=== PATIENT | female | born 1955 | race Two or more races ===

== ENCOUNTER 2019-03-23 14:20 | Emergency (ER) | payer OTHER ==
[~2019-03-23] VITALS: Ht 162.6 cm; Wt 71.7 kg
--- OUTSIDE RECORDS SUMMARY | 2019-03-23 14:22 | XMS REPORT | Summary of Care ---
Author Author [facility] Organization [facility] Address Unknown Phone Unavailable Encounter HQ Rogelio(FIN) [id number] Date(s): 03/19/19 - 03/19/19 [facility] [address] [place] [address]- Encounter Diagnosis Encounter for screening mammogram for malignant neoplasm of breast (Final) - Discharge Disposition: Home or Self Care Attending Physician: Vianey Bernard DO Referring Physician: Vianey Bernard DO Vital Signs No data available for this section Problem List Condition Effective Dates Status Health Status Informant Acute pharyngitis1 01/12/09 Resolved Allergic rhinitis2 Active Benign essential 04/04/10 Active hypertension3 Diabetic - Active cooperative patient(Confirmed) Dyslipidemia4 Active Hypertension(Confirm Active ed) Influenza with 12/09/07 Resolved respiratory manifestation other than pneumonia5 Liver enzymes Active abnormal(Confirmed) Liver Active mass(Confirmed) Long-term drug 04/04/10 Active therapy6 Malignant tumor of 03/30/11 Active breast7 Mammography 03/13/11 Active abnormal8 Muscle pain9 01/12/09 Active Otitis media10 12/29/09 Resolved Ugxuaxwhwee19 11/29/09 Resolved Sick sinus 06/05/07 Active oxcdiapg09 Mhlnuysnq09 09/17/09 Resolved Type 2 diabetes Active emduvosz79 Upper respiratory 11/29/09 Resolved dqfzisljy44, 16 1Data migrated from [employer] on 05/15/15. 2Data migrated from [employer] on 03/27/15. 3Data migrated from [employer] on 03/27/15. 4Data migrated from [employer] on 03/27/15. 5Data migrated from [employer] on 05/15/15. 6Data migrated from [employer] on 03/27/15. 7Data migrated from [employer] on 03/27/15. 8Data migrated from [employer] on 03/27/15. 9Data migrated from [employer] on 03/27/15. 10Data migrated from [employer] on 05/15/15. 11Data migrated from [employer] on 05/15/15. 12Data migrated from [employer] on 03/27/15. 13Data migrated from [employer] on 05/15/15. 14Data migrated from [employer] on 03/27/15. 15Data migrated from [employer] on 05/15/15. 16Data migrated from [employer] on 05/15/15. Allergies, Adverse Reactions, Alerts Substance Reaction Severity Status amoxicillin-clavulanate1 Active NKDA Active 1Data migrated from [employer] on 02/23/15. Originally documented as AUGMENTIN. Gastrointestinal problems, e.g., nausea, vomiting, diarrheastomach upset (NOT TRUE ALLERGY) Medications No data available for this section Results No data available for this section Immunizations No data available for this section Procedures No data available for this section Social History Social History Type Response Assessment and Plan No data available for this section
--- OUTSIDE RECORDS SUMMARY | 2019-03-23 14:22 | XMS REPORT | Summary of Care ---
Author Author [facility] Organization [facility] Address Unknown Phone Unavailable Encounter VAMSI Mercado(FIN) [id number] Date(s): 03/19/18 - 03/19/18 [facility] [address] [place] [address]- [phone] Discharge Disposition: Home or Self Care Attending [...] pain9 01/12/09 Active Otitis media10 12/29/09 Resolved Mbggbylcqfn68 11/29/09 Resolved Sick sinus 06/05/07 Active vjpxthoc53 Tgmbqfcyw31 09/17/09 Resolved Type 2 diabetes Active dckqzkic49 Upper respiratory 11/29/09 Resolved pvsbizltz76, 16 1Data migrated from [employer] on [...]
--- OUTSIDE RECORDS SUMMARY | 2019-03-23 14:22 | XMS REPORT | Summary of Care ---
Author Organization Unknown Address Unknown Phone Unavailable Encounter HQ Encntr_alias(FIN) [id number] Date(s): 02/08/15 - 02/08/15 [facility] [address] [place] [address]- Discharge Disposition: Home Physician Attending: Vianey Bernard DO Physician_Referring: Vianey Bernard DO Vital Signs No data available for this section Problem List Condition Effective Dates Status Health Status Informant Diabetic - Active cooperative patient(Confirmed) Hypertension(Confirm Active ed) Liver enzymes Active abnormal(Confirmed) Liver Active mass(Confirmed) Allergies, Adverse Reactions, Alerts Substance Reaction Severity Status NKDA Active Medications No data available for this section Results No data available for this section Immunizations No data available for this section Procedures No data available for this section Social History Social History Type Response Assessment and Plan No data available for this section
--- OUTSIDE RECORDS SUMMARY | 2019-03-23 14:22 | XMS REPORT | CCD ---
Author Author Auto Generated Organization [facility] Address Unknown Phone Unavailable Care Team Providers Care Ux Visual Designer Name Role Phone Vianey Bernard RP Allergies, Adverse Reactions, Alerts Substance Reaction Status NKDA Active
--- OUTSIDE RECORDS SUMMARY | 2019-03-23 14:22 | XMS REPORT | Summary of Care ---
Author Author [facility] Organization [facility] Address Unknown Phone Unavailable Encounter HQ Rogelio(FIN) [id number] Date(s): 02/04/16 - 02/04/[address] [facility] [address] [place] [address]- Discharge Disposition: Home Attending Physician: Vianey Bernard DO Referring Physician: [...] pain9 01/12/09 Active Otitis media10 12/29/09 Resolved Wvnwuwjllwh28 11/29/09 Resolved Sick sinus 06/05/07 Active ospgonnu81 Wgfntbtxf96 09/17/09 Resolved Type 2 diabetes Active mmatavcl00 Upper respiratory 11/29/09 Resolved drowzxozf57, 16 1Data migrated from [employer] on [...]
--- OUTSIDE RECORDS SUMMARY | 2019-03-23 14:22 | XMS REPORT | CCD ---
Author Author Auto Generated Organization [facility] Address Unknown Phone Unavailable Care Team Providers Care Network Developer Name Role Phone Vianey Bernard RP Allergies, Adverse Reactions, Alerts Substance Reaction Status NKDA Active Problem List Condition Effective Dates Status Diabetic - cooperative patient Active Hypertension Active Liver enzymes abnormal Active Liver mass Active Medications Medication Instructions Start Date End Date Status Byetta 10 mcg/0.04 10 microgram, SUB-Q, BID, 2 ml, 08/14/2012 Ordered mL subcutaneous Substitution Allowed, SOLN solution Vital Signs Most recent to oldest [Reference Range]: 1 Height 162.56 cm (08/14/2012 10:16:00) Weight 70.000 kg (08/14/2012 10:16:00) Results Microbiology Reports PROCEDURE:Culture: AFB w/Smear STATUS: In Progress BODY SITE: Liver COLLECTED DATE/TIME: 08/14/2012 13:29:00 SOURCE: Biopsy FREE TEXT SOURCE: PRELIMINARY REPORTS Preliminary Report Culture In Progress STAIN REPORTS Stain Report No Acid Fast Bacilli Seen On Smear PROCEDURE:Culture: Aspirate/Body Fluid/Tissue STATUS: In Progress BODY SITE: Liver COLLECTED DATE/TIME: 08/14/2012 13:29:00 SOURCE: Biopsy FREE TEXT SOURCE: PRELIMINARY REPORTS Preliminary Report No Growth; Holding Preliminary Report 48 Hour Report - No Growth, Holding STAIN REPORTS Stain Report No Wbc'S Or Organisms Seen PROCEDURE:Culture: Fungal w/Smear STATUS: In Progress BODY SITE: Liver COLLECTED DATE/TIME: 08/14/2012 13:29:00 SOURCE: Lesion FREE TEXT SOURCE: PRELIMINARY REPORTS Preliminary Report Culture In Progress STAIN REPORTS Stain Report No Yeast Or Fungal Elements Seen
--- OUTSIDE RECORDS SUMMARY | 2019-03-23 14:22 | XMS REPORT | CCD ---
Author Author Auto Generated Organization [facility] Address Unknown Phone Unavailable Care Team Providers Care Building Carpenter Helper Name Role Phone Robert Ramirez RP Allergies, Adverse Reactions, Alerts Substance Reaction Status NKDA Active
--- OUTSIDE RECORDS SUMMARY | 2019-03-23 14:22 | XMS REPORT | CCD ---
Author Author Auto Generated Organization [facility] Address Unknown Phone Unavailable Care Team Providers Care Clinical Lab Specialist Name Role Phone Maryjane Stokes CP Unavailable Verónica Degroot CP Kathy Flowers CP [phone] [employer], Login CP Unavailable Lee Barnhart CP Unavailable Robert Ramirez CP Keyla Ahn CP [phone] Natalia Tompkins CP [phone] Vianey Bernard RP Allergies, Adverse Reactions, Alerts Substance Reaction Status NKDA ?? Active
--- OUTSIDE RECORDS SUMMARY | 2019-03-23 14:22 | XMS REPORT | Summary of Care ---
Author Organization Unknown Address Unknown Phone Unavailable Encounter HQ Encntr_alias(FIN) [id number] Date(s): 01/22/15 - 01/22/15 [facility] [address] [place] [address]- Discharge Disposition: Home Physician Attending: Vianey Bernard [...]
--- OUTSIDE RECORDS SUMMARY | 2019-03-23 14:22 | XMS REPORT | CCD ---
Author Author Auto Generated Organization [facility] Address Unknown Phone Unavailable Care Team Providers Care Armature Winder Repairer Name Role Phone Vianey Bernard RP Allergies, Adverse Reactions, Alerts Substance Reaction Status NKDA Active Problem List Condition Effective Dates Status Diabetic - cooperative patient Active Hypertension Active Liver enzymes abnormal Active Liver mass Active
--- OUTSIDE RECORDS SUMMARY | 2019-03-23 14:22 | XMS REPORT | Continuity of Care Document ---
Author Author [facility] Interface Address Unknown Phone Unavailable Problems Problem Status Onset Date Classification Date Reported Comments Source Z12.31=ENCOUNTER FOR SCREENING MAMMOGRAM Active 02/17/2019 [facility] ROUTINE SCREENING LAST MMG W///DX: Active 02/18/2018 [facility] ROUTINE Active 01/31/2017 [facility] M18.9=OSTEOARTHRITIS OF FIRST CARPOMETAC Active 01/17/2016 [facility] ROUTINE MAMMOGRAM Active 01/04/2016 [facility] MAMMO CALL BACK Active 01/27/2015 [facility] SCREENING/ POSTMENOPAUSE Active 01/12/2015 [facility] ABNORMAL MAMMO Active 10/14/2013 [facility] BREAST CA Active 12/02/2012 [facility] STAGE I BREAST CA, ABN IMAGING Active 08/12/2012 [facility] MASS Active 08/12/2012 [facility] 174.9 BREAST CANCER / Active 08/09/2012 [facility] 790.4/ ATTN LIVER Active 07/17/2012 [facility] 174.4 Active 01/31/2012 [facility] BREAST CANCER Active 01/05/2012 [facility] 174.9 Active 04/20/2011 [facility] BREAST CA 174.9/CPT 50160 [id number] Active 04/13/2011 [facility] Malignant tumor of breast<sup>7</sup> Active 03/30/2011 Problem 03/21/2019 Data migrated from [employer] on 03/27/15. [facility] RT BREAST MASS Active 03/16/2011 [facility] Mammography abnormal<sup>8</sup> Active 03/13/2011 Problem 03/21/2019 Data migrated from [employer] on 03/27/15. [facility] MAMMO CALLBACK; SCHED PER RAD-NET REPT; BILATERAL BREAS Active 03/13/2011 [facility] Benign essential hypertension<sup>3</sup> Active 04/04/2010 Problem 03/21/2019 Data migrated from [employer] on 03/27/15. [facility] Long-term drug therapy<sup>6</sup> Active 04/04/2010 Problem 03/21/2019 Data migrated from [employer] on 03/27/15. [facility] Otitis media<sup>10</sup> Resolved 12/29/2009 Problem 03/21/2019 Data migrated from [employer] on 05/15/15. [facility] Pharyngitis<sup>11</sup> Resolved 11/29/2009 Problem 03/21/2019 Data migrated from [employer] on 05/15/15. [facility] Upper respiratory infection<sup>15, 16</sup> Resolved 11/29/2009 Problem 03/21/2019 Data migrated from [employer] on 05/15/15. [facility] Sinusitis<sup>13</sup> Resolved 09/17/2009 Problem 03/21/2019 Data migrated from [employer] on 05/15/15. [facility] Acute pharyngitis<sup>1</sup> Resolved 01/12/2009 Problem 03/21/2019 Data migrated from [employer] on 05/15/15. [facility] Muscle pain<sup>9</sup> Active 01/12/2009 Problem 03/21/2019 Data migrated from [employer] on 03/27/15. [facility] Influenza with respiratory manifestation other than pneumonia<sup>5</sup> Resolved 12/09/2007 Problem 03/21/2019 Data migrated from [employer] on 05/15/15. [facility] Sick sinus syndrome<sup>12</sup> Active 06/05/2007 Problem 03/21/2019 Data migrated from [employer] on 03/27/15. [facility] Diabetic - cooperative patient Active Problem 02/01/2013 [facility] Hypertension Active Problem 02/01/2013 [facility] Liver enzymes abnormal Active Problem 02/01/2013 [facility] Liver mass Active Problem 02/01/2013 [facility] Allergic rhinitis<sup>2</sup> Active Problem 03/21/2019 Data migrated from [employer] on 03/27/15. [facility] Diabetic - cooperative patient Active Problem 03/21/2019 [facility] Dyslipidemia<sup>4</sup> Active Problem 03/21/2019 Data migrated from [employer] on 03/27/15. [facility] Hypertension Active Problem 03/21/2019 [facility] Liver enzymes abnormal Active Problem 03/21/2019 [facility] Liver mass Active Problem 03/21/2019 [facility] Type 2 diabetes mellitus<sup>14</sup> Active Problem 03/21/2019 Data migrated from [employer] on 03/27/15. [facility] Encounter for screening mammogram for malignant neoplasm of breast 03/21/2019 [facility] MALIGN NEOPL BREAST NOS Active [facility] Medications Medication Details Route Status Patient Instructions Ordering Provider Order Date Source Byetta 10 mcg/0.04 mL subcutaneous solution 10 microgram, SUB-Q, BID, 2 ml, Substitution Allowed, SOLN SUB-Q Active 08/14/2012 [facility] Allergies, Adverse Reactions, Alerts Substance Category Reaction Severity Reaction type Status Date Reported Comments Source amoxicillin-clavulanate<sup>1</sup> Assertion Drug allergy Active 12/28/2010 Data migrated from [employer] on 02/23/15. Originally documented as AUGMENTIN. Gastrointestinal problems, e.g., nausea, vomiting, diarrheastomach upset (NOT TRUE ALLERGY) [facility] Immunizations Immunization Date Given Site Status Last Updated Comments Source Results Order Name Results Value Reference Range Date Interpretation Comments Source Breast Mammo Scrn ETHAN w hilary incl CAD MA Breast Mammo Scrn ETHAN w hilary incl CAD MA BILATERAL DIGITAL SCREENING MAMMOGRAM 3D/2D WITH CAD: 03/19/2019 CLINICAL: /Screen. Current study was evaluated with a Computer Aided Detection (CAD) system. COMPARISON:Comparison is made to exams dated: 03/19/2018 mammogram, 03/07/2017 mammogram, 01/28/2016 mammogram, 02/08/2015 mammogram, 01/22/2015 mammogram, and 02/25/2014 mammogram - [facility]. TECHNIQUE: Digital Breast Tomosynthesis was performed and utilized for Interpretation. Droplra Version 1.3 was utilized for computer aided detection. FINDINGS: There are scattered fibroglandular densities in both breasts. The patient is status post lumpectomy right breast. There are post operative and radiation changes in the right breast. There are stable benign calcifications in both breasts. No significant masses, calcifications, or other findings are seen in either breast. There has been no significant interval change. IMPRESSION: BENIGN RECOMMENDATION:The patient is status post lumpectomy right breast. There is no mammographic evidence of malignancy. A 1 year screening mammogram is recommended.(03/19/2020) This exam was interpreted at [id number] for [facility]. Neli trotter/justine:03/19/2019 10:46:30 Medical Illustrator(s): Daisy Hendrickson [facility] letter sent: BI-RADS 1/2 Mammogram BI-RADS: 2 Benign 03/19/2019 - - Read by: Neli Pineda MD Dictated Date/time: 03/19/19 10:46 Electronically Signed by: Neli Pineda MD 03/19/19 10:46 FINAL REPORT [facility] Bone Density Scan Bone Density Scan Study: Bone Density Scan Clinical Indication: - M81.0 Age-related osteoporosis without current pathological fracture; history of breast cancer Images of the axial lumbar spine and left hip have been performed using [employer] Discovery SL scanner. COMPARISON: 02/04/2016 FINDINGS: The left hip bone mineral density is 119% of the peak reference bone mass with a T-score of 1.5. Left hip BMD is 1.123 g/cm2. Left femoral neck BMD is 0.952 g/cm2 and T-score of 0.9. Bone mineral density of the total left hip has decreased 8.4% since previous exam. Bone mineral density of the left femoral neck has decreased 12.2% since previous exam. The axial lumbar bone mineral density is 101% of the peak reference bone mass with a T-score 0.1. Axial lumbar average BMD is 1.062 g/cm2. Bone mineral density of the lumbar spine has decreased 1.1% since previous exam. IMPRESSION: 1. Normal bone mineral density of the left femoral neck. 2. Normal bone mineral density of the total left hip. 3. Normal bone mineral density of the lumbar spine. The World Health Organization has established that OSTEOPOROSIS occurs at -2.5 or more standard deviations (SD) below peak bone mass (T-score on the Hologic report). OSTEOPENIA (low bone mass) occurs at greater than -1.0 standard deviations to -2.5 standard deviations below peak bone mass. SL: [id number] 03/19/2018 - - Read by: Lisa Quiros MD Dictated Date/time: 03/19/18 09:26 Electronically Signed by: Lisa Quiros MD 03/19/18 09:28 FINAL REPORT [facility] Breast Mammo Scrn ETHAN incl CAD MA Breast Mammo Scrn ETHAN incl CAD MA - BREAST MAMMO SCRN ETHAN INCL CAD MA BILATERAL DIGITAL SCREENING MAMMOGRAM WITH CAD: 03/07/2017 CLINICAL: Routine. Current study was evaluated with a Computer Aided Detection (CAD) system. Comparison is made to exams dated: 01/28/2016 mammogram, 02/08/2015 mammogram, 01/22/2015 mammogram, 02/25/2014 mammogram, 10/16/2013 mammogram and 01/30/2013 mammogram - [facility]. There are scattered fibroglandular densities in both breasts. The patient is status post lumpectomy right breast. There are post operative and radiation changes in the right breast. There are stable benign calcifications in both breasts. No significant masses, calcifications, or other findings are seen in either breast. There has been no significant interval change. IMPRESSION: BENIGN The patient is status post lumpectomy right breast. There is no mammographic evidence of malignancy. A 1 year screening mammogram is recommended. Neli trotter/penrad:03/08/2017 08:11:45 Medical Illustrator: Emerita Gray, [facility] This exam was dictated and interpreted by [id number] for [facility]. letter sent: Normal exam Mammogram BI-RADS: 2 Benign 03/07/2017 - - Read by: Neli Pineda MD Dictated Date/time: 03/08/17 08:11 Electronically Signed by: Neli Pineda MD 03/08/17 08:11 FINAL REPORT [facility] Bone Density Scan Bone Density Scan BONE DENSITY: HISTORY: Postmenopausal, history of breast carcinoma. TECHNIQUE: Dual energy x-ray absorptiometry (DEXA) was done over the lumbar spine and left hip. FINDINGS: The total T-score over the lumbar spine is 0.2, consistent with normal bone density. The previous T-score on 01/22/2015 was 0.2, consistent with normal bone density. There has been a 0.1% increase in BMD since the last exam The global T-score over the left hip is 2.3, consistent with normal bone density. The previous T-score was 2.6, consistent with normal bone density. There has been a 2.7% decrease in BMD since the last exam. The focal T-score over the left femoral neck is 2.1, consistent with normal bone density. The BMD is 1.084 g/sq cm. The previous T-score over the left femoral neck was 2.4, consistent with normal bone density. IMPRESSION: 1. Normal bone density of the lumbar spine. 2. Normal global bone density of the left hip. 3. Normal focal bone density of the left femoral neck. FOR YOUR INFORMATION: The World Health Organization has established that OSTEOPOROSIS occurs at -2.5 or more standard deviations (T-score) below peak bone mass (T-score on the Hologic report). OSTEOPENIA occurs at -1.0 to -2.5 standard deviations (T-score) below peak bone mass. [id number] 02/04/2016 - - Read by: Chester Lopez MD Dictated Date/time: 02/04/16 12:02 Electronically Signed by: Chester Lopez MD 02/04/16 12:05 FINAL REPORT [facility] Digital Mammo Screening Ethan MA Digital Mammo Screening Ethan MA - DIGITAL MAMMO SCREENING ETHAN MA BILATERAL DIGITAL SCREENING MAMMOGRAM WITH CAD: 01/28/2016 CLINICAL: Routine. Current study was evaluated with a Computer Aided Detection (CAD) system. Comparison is made to exams dated: 01/22/2015 mammogram, 02/25/2014 mammogram, 10/16/2013 mammogram, 01/30/2013 mammogram, 07/29/2012 mammogram and 01/31/2012 mammogram - [facility]. There are scattered fibroglandular densities in both breasts. The patient is status post lumpectomy right breast. There are post operative and radiation changes in the right breast. There are benign calcifications in both breasts. No significant masses, calcifications, or other findings are seen in either breast. There has been no significant interval change. IMPRESSION: BENIGN The patient is status post lumpectomy right breast. There is no mammographic evidence of malignancy. A 1 year screening mammogram is recommended. Neli trotter/penrad:01/31/2016 08:09:48 Medical Illustrator: Katiana Robles, [facility] This exam was dictated and interpreted by [id number] for [facility] [place]. letter sent: Normal exam Mammogram BI-RADS: 2 Benign 01/28/2016 - - Read by: Neli Pineda MD Dictated Date/time: 01/31/16 08:09 Electronically Signed by: Neli Pineda MD 01/31/16 08:09 FINAL REPORT [facility] Digital Mammo Screening Ethan MA Digital Mammo Screening Ethan MA - DIGITAL MAMMO SCREENING ETHAN MA BILATERAL DIGITAL SCREENING MAMMOGRAM WITH CAD: 01/22/2015 CLINICAL: Routine. Current study was evaluated with a Computer Aided Detection (CAD) system. Comparison is made to exams dated: 02/25/2014 mammogram, 10/16/2013 mammogram, 01/30/2013 mammogram, 07/29/2012 mammogram, 01/31/2012 mammogram and 04/26/2011 mammogram - [facility]. There are scattered fibroglandular densities in both breasts. The patient is status post lumpectomy right breast. There are post operative and radiation changes in the right breast. There are benign calcifications in both breasts. There is a nodular density in the left breast posterior depth lateral region seen on the exaggerated craniocaudal view only. No other significant masses, calcifications, or other findings are seen in either breast. IMPRESSION: INCOMPLETE: NEEDS ADDITIONAL IMAGING EVALUATION The patient is status post lumpectomy right breast. The nodular density in the left breast is indeterminate. Left diagnostic mammogram with possible ultrasound is recommended (repeat XCCL view, spot compression and lateral view). Neli Pineda M.D. jt/:01/25/2015 08:36:54 Medical Illustrator: Daysi Rogers, [facility] This exam was dictated and interpreted by [id number] for [facility] [place]. letter sent: Additional Imaging Mammogram BI-RADS: 0 Indeterminate 01/22/2015 - - Read by: Neli Pineda MD Dictated Date/time: 01/25/15 08:36 Electronically Signed by: Neli Pineda MD 01/25/15 08:36 FINAL REPORT [facility] Bone Density Scan Bone Density Scan EXAM: Bone density study TECHNIQUE AND FINDINGS: Baseline imaging performed on a [employer] Discovery SL scanner. CLINICAL INFORMATION: Osteopenia. FINDINGS: The BMD average of the lumbar spine is 1.073 g/cm2. The T-score is 0.2 and Z- score is 1.7. The percentage change from 01/02/2014 is 6.1% which is statistically significant. This matches the World Health Organization's criteria for normal bone mineral density and places the patient at no increased risk for fracture. The BMD average of the left hip is 1.261 g/cm2. The T-score is 2.6 and Z-score is 3.6. The percentage change from 01/02/2014 is 12.1% which is statistically significant. This matches the World Health Organization's criteria for normal bone mineral density and places the patient at no increased risk for fracture. IMPRESSION: Normal bone mineral density of the lumbar spine and left hip. The World Health Organization has established that OSTEOPOROSIS occurs at -2.5 or more standard deviations (SD) below peak bone mass (T-score on the Hologic report). OSTEOPENIA (low bone mass) occurs at -1.0 standard deviations to -2.5 standard deviations below peak bone mass. SL: 12 01/22/2015 - - Read by: Nino Medina MD Dictated Date/time: 01/22/15 13:10 Electronically Signed by: Nino Medina MD 01/22/15 13:12 FINAL REPORT [facility] Microbiology Culture: AFB w/Smear 08/14/2012 [facility] Microbiology Culture: Aspirate/Body Fluid/Tissue 08/14/2012 [facility] Microbiology Culture: Fungal w/Smear 08/14/2012 [facility] Vital Signs Vital Sign Value Date Comments Source Height 162.56 cm 08/14/2012 [facility] Weight 70.000 08/14/2012 [facility] Encounters Location Location Details Encounter Type Encounter Number Reason For Visit Attending Provider ADM Date DC Date Status Source [facility] Outpatient [id number] ROUTINE [facility] 03/03/2011 03/03/2011 Active [facility] [id number] MAMMO CALLBACK; SCHED PER RAD-NET REPT; BILATERAL BREAS KAVITHA GASCA 03/16/2011 03/16/2011 Active [facility] [id number] RT BREAST MASS KAVITHA GASCA 03/22/2011 03/22/2011 Active [facility] [id number] BREAST CANCER MAGALY DAVIS 04/03/2011 04/03/2011 Active [facility] [id number] BREAST CANCER VIANEY BRANDY 04/04/2011 04/04/2011 Active [facility] [id number] BREAST CANCER MARIA DEL CARMEN MALCOLM 04/07/2011 04/07/2011 Active [facility] [id number] 174.9 VIANEY NAVA 04/20/2011 04/20/2011 Active [facility] [place] [id number] BREAST CA 174.9/CPT [id number] MAGALY DAVIS 04/26/2011 04/26/2011 Active [facility] [place] [id number] BREAST CANCER MARIA DEL CARMEN FOWLER 05/02/2011 05/31/2011 Active [facility] Outpatient [id number] BREAST CA VIANEY HASHAM-JIWA 05/24/2011 05/24/2011 Active [facility] [place] [id number] BREAST CANCER MARIA DEL CARMEN FOWLER 06/01/2011 06/30/2011 Active [facility] Outpatient [id number] BREAST CANCER MARIA DEL CARMEN FOWLER 07/11/2011 Active [facility] [id number] BREAST CA MARIA DEL CARMEN FOWLER 08/28/2011 Active [facility] Outpatient [id number] 174.4 MARIA DEL CARMEN FOWLER 09/05/2011 Active [facility] Outpatient [id number] BREAST CANCER MARIA DEL CARMEN FOWLER 09/19/2011 Active [facility]patient [id number] BREAST CANCER MARIA DEL CARMEN FOWLER 01/31/2012 Active [facility] Outpatient [id number] 790.4/ ATTN LIVER VIANEY JONELAM-JIWA 07/18/2012 Active [facility] [id number] BREAST CA VIANEY HASHAM-JIWA 07/29/2012 Active [facility] Out[facility] [id number] STAGE I BREAST CA, ABN IMAGING VIANEY JONELAM-JIWA 08/14/2012 Active [facility] [id number] BREAST CA VIANEY HASHAM-JIWA 01/30/2013 Active [facility] Outpatient [id number] Vianey Hasham-Jiwa 01/22/2015 01/23/2015 [facility] Outpatient [id number] Vianey Hasham-Jiwa 02/08/2015 02/09/2015 [facility] Outpatient [id number] Vianey Hasham-Jiwa 01/28/2016 01/29/2016 [facility] Outpatient [id number] Vianey Hasham-Jiwa 02/04/2016 02/05/2016 [facility] Outpatient [id number] Vianey Hasham-Jiwa 03/19/2018 03/20/2018 [facility] Outpatient [id number] Nava 03/19/2019 03/20/2019 [facility] [id number] 174.4 MARIA DEL CARMEN FOWLER Active [facility] Out[facility] [id number] 174.9 BREAST CANCER / VIANEY NAVA Cancel [facility] [id number] ABNORMAL MAMMO VIANEY NAVA Active [facility] Procedures Procedure Code Date Perfomer Comments Source
--- OUTSIDE RECORDS SUMMARY | 2019-03-23 14:22 | XMS REPORT | Summary of Care ---
Author Author [facility] Organization [facility] Address Unknown Phone Unavailable Encounter HQ Rogelio(FIN) [id number] Date(s): 01/28/16 - 01/28/16 [facility] [address] [place] [address]- Discharge Disposition: Home Attending Physician: Vianey Bernard [...] pain9 01/12/09 Active Otitis media10 12/29/09 Resolved Kjdyiftcddr18 11/29/09 Resolved Sick sinus 06/05/07 Active nutcydtm97 Vprrvngzz78 09/17/09 Resolved Type 2 diabetes Active eriewbzb35 Upper respiratory 11/29/09 Resolved mwybegvsi88, 16 1Data migrated from [employer] on [...]
--- OUTSIDE RECORDS SUMMARY | 2019-03-23 14:22 | XMS REPORT | CCD ---
Author Author Auto Generated Organization [facility] Address Unknown Phone Unavailable Care Team Providers Care Radiophone Operator Name Role Phone Verónica Degroot CP Kathy Flowers CP [phone] [employer], Login CP Unavailable Robert Ramirez RP Keyla hAn CP [phone] Allergies, Adverse Reactions, Alerts Substance Reaction Status NKDA ?? Active
[2019-03-23] MEDS ORDERED: ONDANSETRON HCL 4 MG ORAL DISINTEGRATING TAB ONE (14:49)
[2019-03-23] MEDS ORDERED: ACETAMINOPHEN 325 MG TAB ONE (14:50)
[2019-03-23] MEDS ORDERED: IBUPROFEN 200 MG TAB ONE (14:50)
[2019-03-23] MEDS ORDERED: IBUPROFEN 200 MG TAB PO ONE (15:00)
[2019-03-23] MEDS ORDERED: ONDANSETRON HCL 4 MG ORAL DISINTEGRATING TAB PO ONE (15:00)
[2019-03-23] MEDS ORDERED: ACETAMINOPHEN 325 MG TAB PO ONE (15:00)
--- NOTE | 2019-03-23 15:19 | Diagnostic Imaging Report ---
KNEE 3VW LT - HOPD - 3 views HISTORY: Pain. hurt the left knee. Fell on the knee on the carpet 5 hours ago. COMPARISON: None available. FINDINGS: Bones: No acute displaced fracture. Osseous alignment is within normal limits. Joints: Moderate degenerative changes in medial, mild in the lateral, and mild in the patellofemoral compartments. Small suprapatellar joint effusion. Soft tissues: Prepatellar soft tissue swelling. A few punctate coarse dystrophic ulceration in the prepatellar soft tissue, likely from previous injury. IMPRESSION: 1. No fractures. 2. Degenerative changes in the left knee, moderate in the medial compartment. Signed by: Dr. Glynn Young M.D. on 03/23/2019 3:15 PM
== END 2019-03-23 15:12 | disposition home or self-care (01) ==
LOC: FSED 14:20
DX: S83.92XA Sprain of unspecified site of left knee, initial encounter (principal); W01.0XXA Fall on same level from slipping, tripping and stumbling without subsequent striking against object, initial encounter; Y93.01 Activity, walking, marching and hiking; Y92.019 Unspecified place in single-family (private) house as the place of occurrence of the external cause; I51.9 Heart disease, unspecified
CPT/HCPCS: 73562; 99283; Q0162